=== PATIENT | male | born 1985 | race Caucasian/White ===

== ENCOUNTER 2021-11-08 22:48 | Emergency (ER) | payer BC ==
[2021-11-08] MEDS ORDERED: Ketorolac 30 MG/ML SDV IM ONE (23:50)
[2021-11-08] MEDS ORDERED: Acetaminophen 500 MG Tab PO ONE (23:51)
--- NOTE | 2021-11-08 23:59 | EDM.PDOC ---
ED HPI GENERAL MEDICAL PROBLEM - General Chief Complaint: Neck Problem Stated Complaint: NECK AND BACK INJURY Time Seen by Provider: 11/08/21 23:56 Source of Information: Reports: Patient History Limitations: Reports: No Limitations - History of Present Illness INITIAL COMMENTS - FREE TEXT/NARRATIVE: 36 y/o M c/o cervical and thoracic sine ine after falling down [address] eps this morning. No loc. pt got up immediately and as the day progressed has been feeling more and more pain in his neck and between his shoulder blades. Denies other injury, meds, allergies, med hx, drugs, etoh. Neck Pain Score (Numeric/FACES): 9 - Related Data Allergies Allergy/AdvReac Type Severity Reaction Status Date / Time No Known Allergies Allergy Verified 11/08/21 23:40 Home Meds: Home Meds Omeprazole 20 mg PO DAILY 11/08/21 [History] Past Medical History Gastrointestinal History: Reports: GERD - Infectious Disease History Infectious Disease History: Reports: Chicken Pox Social & Family History - Tobacco Use Tobacco Use Status *Q: Never Tobacco User Second Hand Smoke Exposure: No - Recreational Drug Use Recreational Drug Use: No ED ROS GENERAL - Review of Systems Review Of Systems: Comprehensive ROS is negative, except as noted in HPI. Constitutional: Reports: No Symptoms HEENT: Reports: No Symptoms Respiratory: Reports: No Symptoms Cardiovascular: Reports: No Symptoms Endocrine: Reports: No Symptoms GI/Abdominal: Reports: No Symptoms : Reports: No Symptoms Musculoskeletal: Reports: No Symptoms Skin: Reports: No Symptoms Neurological: Reports: No Symptoms Psychiatric: Reports: No Symptoms Hematologic/Lymphatic: Reports: No Symptoms Immunologic: Reports: No Symptoms ED EXAM, UPPER BACK/NECK PAIN - Physical Exam Exam: See Below Exam Limited By: No Limitations General Appearance: Alert, Mild Distress Ears Exam: Normal External Exam, Normal Canal, Hearing Grossly Normal, Normal TMs Nose Exam: Normal Inspection, Normal Mucousa, No Blood Throat/Mouth Exam: Normal Inspection, Normal Lips, Normal Teeth, Normal Gums, Normal Oropharynx, Normal Voice, No Airway Compromise Head Exam: Atraumatic, Normocephalic Neck Exam: Other (tender c5-c6 midline. 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 As Tested, No Motor/Sensory Deficits, Alert, Normal Mood/Affect, Oriented x 3 Psychiatric: Normal Affect, Normal Mood Skin Exam: Normal Color, Warm/Dry Course - Vital Signs Last Recorded V/S: Last Vital Signs Temp 97.7 F 11/08/21 23:30 Pulse 78 11/08/21 23:30 Resp 18 11/08/21 23:30 BP 125/93 H 11/09/21 00:05 Pulse Ox 98 11/08/21 23:30 - Orders/Labs/Meds Meds: Medications Discontinued Medications Generic Name Dose Route Start Last Admin Trade Name Carrol PRN Reason Stop Dose Admin Acetaminophen 1,000 mg 11/08/21 23:51 11/09/21 00:15 Acetaminophen 500 Mg Tab PO 11/08/21 23:52 1,000 mg ONETIME ONE Administration Ketorolac Tromethamine 30 mg 11/08/21 23:50 11/09/21 00:17 Ketorolac 30 Mg/Ml Sdv IM 11/08/21 23:51 30 mg ONETIME ONE Administration - Re-Assessments/Exams Free Text/Narrative Re-Assessment/Exam: 11/09/21 01:[address] Virginie Ramos orthopedic surgeon who advised that since the fractures of the cervical spine or stable facets fractures and non displaced the pt can go home. Dr. Rachel advised his office will contact the pt Thursday to schedule an appointment. Departure - Departure Time of Disposition: 01:35 Disposition: Home, Self-Care 01 Condition: Fair Clinical Impression: Cervical spine fracture Qualifiers: Encounter type: initial encounter Cervical vertebra fracture level: C6 Fracture type: closed Fracture morphology: unspecified fracture morphology Fracture alignment: nondisplaced Qualified Code(s): S12.501A - Unspecified nondisplaced fracture of sixth cervical vertebra, initial encounter for closed fracture Thoracic compression fracture Qualifiers: Encounter type: initial encounter Thoracic vertebra fracture level: T3 Qualified Code(s): S22.030A - Wedge compression fracture of third thoracic vertebra, initial encounter for closed fracture - Discharge Information *PRESCRIPTION DRUG MONITORING PROGRAM REVIEWED*: Not Applicable *COPY OF PRESCRIPTION DRUG MONITORING REPORT IN PATIENT FLOYD: Not Applicable Forms: ED Department Discharge Additional Instructions: RX: Tylenol You have fractures of the facet joint of cervical vertebrae 6 and 7 as well as slight compression fractures of T3 and T5. The neurosurgeon Dr. Rachel will have his office call you Thursday morning to schedule an appointment with him to assess your fractures further. These fractures are non surgical meaning you should not need any surgery. Dr. Rachel wants you to wear the c-collar to support your neck until you can get in to see him at which time he will likely be fitted for a different collar. Use Tylenol and ibuprofen for pain. You can have Tylenol and Ibuprofen again at 6am. Do not do strenuous activity. Rest over the weekend. If you do not here from Dr. Rachel's office by Thursday call his office in [place]. If any new symptoms or concerns develop contact your primary care facility or return to the ER. Sepsis Event Note (ED) - Focused Exam Vital Signs: Vital Signs Temp Pulse Resp BP Pulse Ox 11/09/21 00:05 125/93 H 11/08/21 23:30 97.7 F 78 18 146/103 H 98
--- NOTE | 2021-11-09 00:48 | CT ---
PROCEDURE INFORMATION: Exam: CT Cervical Spine Without Contrast Exam date and time: 11/09/2021 12:08 AM Age: 36 years old Clinical indication: Other: Fall/pain; Additional info: Fall down ten stairs this morning, no loc TECHNIQUE: Imaging protocol: Computed tomography images of the cervical spine without contrast. Radiation optimization: All CT scans at this facility use at least one of these dose optimization techniques: automated exposure control; mA and/or kV adjustment per patient size (includes targeted exams where dose is matched to clinical indication); or iterative reconstruction. COMPARISON: No relevant prior studies available. FINDINGS: Bones/joints: Nondisplaced fractures through the right C6 and C7 facet joints. Good alignment. Discs/Spinal canal/Neural foramina: No spinal stenosis. Lungs: Lung apices are normal. Soft tissues: Unremarkable. IMPRESSION: Right C6 and C7 facet fractures. Alignment is preserved.
--- NOTE | 2021-11-09 00:51 | CT ---
PROCEDURE INFORMATION: Exam: CT Thoracic Spine Without Contrast Exam date and time: 11/09/2021 12:08 AM Age: 36 years old Clinical indication: Other: Fall/pain; Additional info: Fall down ten stairs this morning, no loc TECHNIQUE: Imaging protocol: Computed tomography images of the thoracic spine without contrast. Radiation optimization: All CT scans at this facility use at least one of these dose optimization techniques: automated exposure control; mA and/or kV adjustment per patient size (includes targeted exams where dose is matched to clinical indication); or iterative reconstruction. COMPARISON: No relevant prior studies available. FINDINGS: Vertebrae: Mild compression fracture deformities through superior endplates of T3 and T5 vertebral bodies. No bony retropulsion. Discs/Spinal canal/Neural foramina: No significant disc protrusion. No severe spinal canal stenosis. No significant neural foraminal narrowing. Soft tissues: Unremarkable. IMPRESSION: Mild T3 and T5 compression fracture deformities. No central canal stenosis. Note cervical spine fractures are described in detail on same-day CT cervical spine report.
[2021-11-09] MEDS ORDERED: Acetaminophen 500 MG Tab ONE (02:23)
== END 2021-11-09 02:31 | disposition home or self-care (01) ==
LOC: DL.ED 22:48
DX: S12.501A Unspecified nondisplaced fracture of sixth cervical vertebra, initial encounter for closed fracture (principal); S22.030A Wedge compression fracture of third thoracic vertebra, initial encounter for closed fracture; Z79.899 Other long term (current) drug therapy; W10.8XXA Fall (on) (from) other stairs and steps, initial encounter
CPT/HCPCS: 72125; 72128; 96372; 99283; A9270; J1885